=== PATIENT | male | born 1960 | race Asian ===

== ENCOUNTER 2019-03-18 11:12 | Emergency (ER) | payer SELFPAY ==
[~2019-03-18] VITALS: Ht 172.7 cm; Wt 60.0 kg
[2019-03-18] MEDS ORDERED: LIDOCAINE HCL/PF 1% 10 MG/ML 5ML VIAL IJ ONE (13:30)
[2019-03-18] MEDS ORDERED: TETANUS, DIPHTHERIA, PERTUSSIS VAC/PF 0.5ML (>7YR OLD) IM ONE (13:30)
[2019-03-18] MEDS ORDERED: BACITRACIN ZINC OINT UDPKT TOP ONE (13:30)
[2019-03-18] MEDS ORDERED: HYDROCODONE/ACETAMINOPHEN 5/325MG TABLET PO ONE (13:30)
[2019-03-18 14:15] VITALS: BP 135/85
[2019-03-18] MEDS ORDERED: TETRACAINE 0.5% OPHTH DROPS 4ML ONE (14:52)
[2019-03-18] MEDS ORDERED: FLUORESCEIN SODIUM 1MG/STRIP ONE ×2 (14:57→14:58)
== END 2019-03-18 15:48 | disposition home or self-care (01) ==
LOC: ER 11:12
DX: S61.211A Laceration without foreign body of left index finger without damage to nail, initial encounter (principal); S61.213A Laceration without foreign body of left middle finger without damage to nail, initial encounter; S61.215A Laceration without foreign body of left ring finger without damage to nail, initial encounter; W26.8XXA Contact with other sharp object(s), not elsewhere classified, initial encounter; Y93.89 Activity, other specified; Y92.018 Other place in single-family (private) house as the place of occurrence of the external cause
CPT/HCPCS: 29130; 73130; 90471; 90715; 99283; J3490